=== PATIENT | male | born 1985 | race Caucasian/White ===

== ENCOUNTER 2024-09-02 08:19 | Emergency (ER) | payer OTHER, SELFPAY ==
[2024-09-02 08:29] VITALS: BP 187/98; PULSE 101; RESP 12; TEMP 36.6; O2SAT 99; BMI 35.3
--- NOTE | 2024-09-02 08:34 | ED_ITS ---
HPI - Headache General Chief Complaint: Hypertension Stated Complaint: High Blood pressure, feels like he is going to out Time Seen by Provider: 09/02/24 08:30 Mode of arrival: Ambulatory History of Present Illness HPI Narrative: Patient is a 39-year-old male with a history of hypertension compliant on all his medications comes into the ED from home for evaluation of headache and high blood pressure. He states that he has been compliant with his medications but was out this morning shopping when he noticed he has feeling a little ?off states that he was having a dull headache but denies any visual disturbances denies any lightheaded dizziness. States that he went home checked his blood pressure was 180 systolic base of decided come into the ED for further evaluation treatment. He denies any chest pain shortness breath fever chills nausea vomiting abdominal pain or any other GI/ symptoms time. Not on any blood thinners no trauma no falls Related Data Allergies Allergy/AdvReac Type Severity Reaction Status Date / Time No Known Drug Allergies Allergy Verified 09/02/24 08:32 Review of Systems Review of Systems Narrative: General: Denies fever, chills, weight loss HEENT: Positive headache, denies eye drainage, eye irritation, head trauma, sore throat, voice change Cardiovascular: Denies any chest pain, palpitations, shortness of breath, tachycardia Respiratory: Denies any shortness of breath, cough, wheeze, stridor GI/: Denies any abdominal pain, nausea, vomiting, diarrhea, bright red blood per rectum, melanotic stools, urinary frequency, urinary retention, dysuria, hematuria MSK: Denies any joint pain, muscle pains, swelling Skin: Denies any rashes, lesions, discoloration Neuro: Denies any headache, lightheadedness, dizziness, fainting, weakness Psych: Denies SI/HI Patient History Social History Smoking Status: Never smoker Smoking Status: Never smoker alcohol intake frequency: 0-2 drinks per day Substance Use Type: does not use Exam Narrative Exam Narrative: General: Cooperative, comfortable, well-developed, not in acute distress HEENT: Normocephalic, atraumatic, PERRLA, normal sclera, eyelids normal, Neck: Active full range of motion, atraumatic Chest: Normal to inspection, negative crepitus, no overlying erythema ecchymosis Respiratory: Normal respiratory effort, not in acute respiratory distress, clear to auscultation bilaterally negative cough, wheeze, tachypnea, rhonchi, rales Cardiology: Regular rate rhythm negative gallop, murmur, rubs GI/: Normal to inspection, soft, nonrigid, no tenderness to palpation, exam deferred MSK: Full range of active range of motion of all 4 extremities, atraumatic Skin: No rashes lesions noted Neuro: Alert awake oriented x3, moves all 4 extremities spontaneously, cranial nerves intact, able to answer all questions appropriately follows commands appropriately Psych: Cooperative, negative suicidal or homicidal ideations Initial Vital Signs Initial Vital Signs: Vital Signs Temperature 97.8 F 09/02/24 08:29 Pulse Rate 101 H 09/02/24 08:29 Respiratory Rate 12 09/02/24 08:29 Blood Pressure 187/98 H 09/02/24 08:29 Pulse Oximetry 99 09/02/24 08:29 Oxygen Delivery Method Room Air 09/02/24 08:29 Course Orders Ordered: ED Orders 09/02/24 08:56 BMP [Basic Metabolic Panel] Stat CBC No Diff [Complete Blood Count NO DIFF] Stat Discontinued Medications Acetaminophen (Acetaminophen 325 Mg Tablet) 650 mg PO NOW ONE Stop: 09/02/24 08:35 Last Admin: 09/02/24 08:54 Dose: 650 mg Documented By: BRIELLE Dexamethasone (Dexamethasone 10 Mg/Ml Vial) 10 mg IV NOW ONE Stop: 09/02/24 08:35 Last Admin: 09/02/24 08:55 Dose: 10 mg Documented By: BRIELLE Diphenhydramine HCl (Diphenhydramine 50 Mg/Ml Vial) 25 mg IV NOW ONE Stop: 09/02/24 08:35 Last Admin: 09/02/24 08:54 Dose: Not Given Documented By: BRIELLE Metoclopramide HCl (Metoclopramide 10 Mg/2 Ml Inj) 10 mg IV NOW ONE Stop: 09/02/24 08:35 Last Admin: 09/02/24 08:54 Dose: Not Given Documented By: BRIELLE Vital Signs Vital signs: Vital Signs - 8 hr 09/02/24 08:29 Temperature 97.8 F Pulse Rate 101 H Respiratory Rate 12 Blood Pressure 187/98 H Pulse Oximetry 99 Oxygen Delivery Method Room Air MDM - Headache Differential Diagnosis Differential diagnosis: Likely tension headache, headache and other (Hypertension) Lab Data 09/02/24 08:56 09/02/24 08:56 Labs: Lab Results 09/02/24 Range/Units 08:56 WBC 4.2 L (4.5-11.0) X10^3/uL RBC 5.42 (4.5-5.9) X10^6/uL Hgb 17.4 (13.5-17.5) g/dL Hct 49.3 (41-53) % MCV 90.9 (80-100) fL MCH 32.2 (26-34) PG MCHC 35.4 (30-36) % RDW 13.0 (11.6-14.8) % Plt Count 192 (150-400) X10^3/uL Sodium 135 L (137-145) mmol/L Potassium 4.6 (3.4-5.1) mmol/L Chloride 99 (98-107) mmol/L Carbon Dioxide 25 (22-32) mmol/L BUN 10 (9-20) mg/dL Creatinine 0.81 (0.66-1.25) mg/dL Estimated GFR > 60 (>60) mL/min BUN/Creatinine Ratio 12.3 (6-22) Glucose 165 H (70-100) mg/dL Calcium 9.5 (8.4-10.2) mg/dL ECG Data Attestation: I personally reviewed and interpreted this ECG as follows: Interpretation: EKG interpreted by ED physician sinus at 95 beats per minute QTC 439, normal axis, nonspecific ST changes, no STEMI MDM Narrative Medical decision making narrative: Patient 39-year-old male presents for headache and high blood pressure systolically in the 180s, has a history of hypertension compliant with all his medications but denies any other symptoms. 0941: Patient re-evaluated, patient stating his headache has completely resolved, did decline Reglan Benadryl, however did take Tylenol and Decadron. Patient's blood pressure improved, last blood pressure systolically 157, he is not having any other symptoms at this time, lab work unremarkable, no leukocytosis, creatinine normal. Patient without any neurological deficits, no visual changes, no indication for CT scan of the head. Patient was instructed to follow up with primary care in an outpatient setting, strict return precautions were given safe for discharge home with outpatient follow-up Discharge Plan Departure Patient Disposition: Home Clinical Impression: Hypertension, Headache Activity Restrictions/Additional Instructions: Please follow up with her primary care doctor Please read the discharge instructions sheet carefully and bring all papers to all doctor follow-up visits, as it may contain information that your doctor may want to see. Disease processes change and evolve, if your symptoms worsen or if you develop any new symptoms that are concerning to you please return for evaluation. Your evaluation today does not show any evidence of any life- threatening/serious illnesses requiring admission to the hospital or surgery. Please follow-up with your doctor for re-evaluation in approximately 1 day. Seek immediate medical attention for any worrisome symptoms. Stand Alone Forms: Patient Portal/API
[2024-09-02] MEDS: ACETAMINOPHEN 325 MG TABLET 650 MG PO (08:54)
[2024-09-02] MEDS: DEXAMETHASONE 10 MG/ML VIAL IV (08:55)
--- NOTE | 2024-09-02 09:03 | PC.NURSE ---
Pt reports headache, left sided head pressure, difficulty focusing, high blood pressure unable to be managed with 3 home bp meds, and feeling off. denies n/v. denies seeing flashes or floaters in vision.
[2024-09-02 09:06] LABS: Hematocrit 49.3 % (41-53); Hemoglobin 17.4 g/dL (13.5-17.5); Mean Corpuscular HGB Conc 35.4 % (30-36); Mean Corpuscular Hemoglobin 32.2 PG (26-34); Mean Corpuscular Volume 90.9 fL (80-100); Platelet Count 192 X10^3/uL (150-400); Red Blood Cell Count 5.42 X10^6/uL (4.5-5.9); White Blood Cell Count 4.2 X10^3/uL (4.5-11.0)
[2024-09-02 09:15] LABS: BUN Creatinine Ratio 12.3 (6-22); Blood Urea Nitrogen 10 mg/dL (9-20); Calcium 9.5 mg/dL (8.4-10.2); Carbon Dioxide 25 mmol/L (22-32); Chloride 99 mmol/L (98-107); Estimated Glomerular Filt Rate > 60 mL/min (>60); Glucose 165 mg/dL (70-100); HEMOLYSIS 15 (0-50); Potassium 4.6 mmol/L (3.4-5.1); Sodium 135 mmol/L (137-145)
[2024-09-02 09:49] VITALS: BP 157/81; PULSE 78; RESP 16; O2SAT 96
--- NOTE | 2024-09-02 09:50 | EKG_ITS ---
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
--- NOTE | 2024-09-02 09:53 | PC.NURSE ---
RT called and they stated he will match EKG.
== END 2024-09-02 09:54 | disposition home or self-care (01) ==
PROVIDERS: Emergency Provider Student in an Organized Health Care Education/Training Program; Referring Provider Student in an Organized Health Care Education/Training Program
DX: I10 Essential (primary) hypertension (principal); R51.9 Headache, unspecified
CPT/HCPCS: 80048; 85027; 93005; 96374; 99284; J1100